=== PATIENT | male | born 1975 | race Two or more races ===

== ENCOUNTER 2019-02-03 12:48 | Inpatient (IN) | payer MEDICAID ==
[~2019-02-03] VITALS: Ht 149.9 cm; Wt 58.3 kg
[2019-02-03] MEDS ORDERED: BACL10TA PO (13:26)
[2019-02-03] MEDS ORDERED: FAMO20 GT (13:26)
[2019-02-03] MEDS ORDERED: ALBU8HFA IH (13:26)
[2019-02-03] MEDS ORDERED: DILT30 GT (13:26)
[2019-02-03] MEDS ORDERED: DOCU60SY GT (13:26)
[2019-02-03] MEDS ORDERED: LEVE250T55 GT (13:26)
[2019-02-03] MEDS ORDERED: PHEN-649 PO (13:26)
[2019-02-03] MEDS ORDERED: CALC-261 GT (13:26)
[2019-02-03] MEDS ORDERED: DIAZ5 GT (13:26)
[2019-02-03] MEDS ORDERED: LACO100 GT (13:26)
[2019-02-03] MEDS ORDERED: CARB100 GT (13:26)
[2019-02-03 16:54] LABS: BASOPHILS % (AUTO) 0.4 % (0.0-2.0); EOSINOPHILS % (AUTO) 0.2 % (1.0-6.0); HEMATOCRIT 35.2 % (41-53); HEMOGLOBIN 12.1 g/dL (13.5-17.5); LYMPHOCYTES # (AUTO) 0.8 K/uL (1.0-4.8); LYMPHOCYTES % (AUTO) 6.6 % (22.0-44.0); MEAN CORPUSCULAR HEMOGLOBIN 31.1 pg (26.0-34.0); MEAN CORPUSCULAR HGB CONC 34.3 G/dL (31.0-37.0); MEAN CORPUSCULAR VOLUME 91 fL (80-100); MONOCYTES # (AUTO) 0.6 K/uL (0.1-1.0); MONOCYTES % (AUTO) 4.8 % (2.0-9.0); PLATELET COUNT (AUTO) 233 K/uL (150-450); RED BLOOD CELL COUNT(AUTO) 3.89 MIL/uL (4.50-5.90); RED CELL DISTRIBUTION WIDTH 14.9 % (11.5-14.5)
[2019-02-03 17:18] LABS: B-TYPE NATRIURETIC PEPTIDE 50 pg/mL (0-100)
[2019-02-03 17:19] LABS: ANION GAP 9 mmol/L (8-16); CALCIUM, TOTAL 8.9 mg/dL (8.8-10.5); CARBON DIOXIDE 29 mmol/L (22-29); CHLORIDE 92 mmol/L (98-107); GLOMERULAR FILTR. RATE CALC > 60 mL/min (>60); GLUCOSE,RANDOM 86 mg/dL (70-110); POTASSIUM 4.4 mmol/L (3.5-5.1); SODIUM SERUM 130 mmol/L (136-145); UREA NITROGEN, BLOOD 15 mg/dL (7-18)
[2019-02-03 17:25] LABS: ALANINE AMINOTRANSFERASE 62 U/L (12-78); ALBUMIN 3.4 g/dL (3.4-5.0); ALKALINE PHOSPHATASE 128 U/L (46-116); ASPARTATE AMINOTRANSFERASE 37 U/L (15-37); BILIRUBIN,TOTAL 0.4 mg/dL (0.1-1.0); TOTAL PROTEIN, SERUM 8.2 g/dL (6.4-8.2)
[2019-02-03] MEDS ORDERED: AZITHROMYCIN 500 MG/NS 250 ML IV ONE (17:30)
[2019-02-03] MEDS ORDERED: SODIUM CHLORIDE 0.9% 1,000 ML IV ONE (17:30)
[2019-02-03] MEDS ORDERED: CefTRIAXone 1 GM/DEXTROSE 50 ML IV ONE (17:30)
[2019-02-03] MEDS ORDERED: ACETAMINOPHEN 325 MG TABLET PO PRN ×2 (18:45→21:15)
[2019-02-03] MEDS ORDERED: 0.9% SODIUM CHLORIDE 10 ML SYRINGE IVP PRN (18:45)
[2019-02-03] MEDS ORDERED: MAGNESIUM HYDROXIDE SUSPENSION 30 ML UDCUP PO PRN (21:15)
[2019-02-03] MEDS ORDERED: DEXTROSE 5%-0.45% SODIUM CHL 1,000 ML IV ONE (21:15)
[2019-02-03] MEDS ORDERED: LORazepam 2 MG/ML VIAL IVP PRN (21:15)
[2019-02-03] MEDS ORDERED: ALBUTEROL SULFATE 2.5 MG/0.5 ML NEB SOLUTION NEB PRN (21:15)
[2019-02-03 21:38] VITALS: BP 143/93
[2019-02-03] MEDS ORDERED: VANCOMYCIN HCL 1.5 GM in DEXTROSE 5%-WATER 250 ML IV ONE (22:00)
[2019-02-03] MEDS: PIPERACILLIN/TAZO 3.375 GM/D5W 50 ML IV SCH (23:50)
[2019-02-03 23:52] VITALS: BP 120/72
[2019-02-04 04:16] VITALS: BP 148/80
[2019-02-04 04:20] LABS: APPEARANCE,URINE CLEAR (CLEAR); BILIRUBIN,URINE NEGATIVE (NEGATIVE); GLUCOSE, URINE (UA) NEGATIVE (NEGATIVE); KETONES,URINE NEGATIVE (NEGATIVE); LEUKOCYTE ESTERASE ,URINE NEGATIVE (NEGATIVE); NITRATE,URINE NEGATIVE (NEGATIVE); OCCULT BLOOD,URINE NEGATIVE (NEGATIVE); PH,URINE 7.5 (5.0-8.0); PROTEIN,URINE NEGATIVE (NEGATIVE); UROBILINOGEN,URINE 0.2 mg/dL (<=1.0)
[2019-02-04] MEDS ORDERED: PNEUMOCOCCAL VACCINE POLYVALENT 0.5 ML VIAL [PPSV23] IM ONE (06:00)
[2019-02-04] MEDS: PIPERACILLIN/TAZO 3.375 GM/D5W 50 ML IV SCH ×4 (06:38→23:40)
[2019-02-04 06:43] LABS: ANION GAP 12 mmol/L (8-16); CALCIUM, TOTAL 9.5 mg/dL (8.8-10.5); CARBON DIOXIDE 23 mmol/L (22-29); CHLORIDE 102 mmol/L (98-107); CREATININE 0.47 mg/dL (0.60-1.30); GLOMERULAR FILTR. RATE CALC > 60 mL/min (>60); GLUCOSE,RANDOM 132 mg/dL (70-110); POTASSIUM 5.5 mmol/L (3.5-5.1); SODIUM SERUM 137 mmol/L (136-145); UREA NITROGEN, BLOOD 10 mg/dL (7-18)
[2019-02-04 06:52] LABS: BASOPHILS % (AUTO) 0.7 % (0.0-2.0); EOSINOPHILS % (AUTO) 0.6 % (1.0-6.0); HEMATOCRIT 34.2 % (41-53); HEMOGLOBIN 11.6 g/dL (13.5-17.5); LYMPHOCYTES # (AUTO) 1.2 K/uL (1.0-4.8); LYMPHOCYTES % (AUTO) 13.5 % (22.0-44.0); MEAN CORPUSCULAR HGB CONC 33.8 G/dL (31.0-37.0); MEAN CORPUSCULAR VOLUME 92 fL (80-100); MONOCYTES # (AUTO) 0.5 K/uL (0.1-1.0); MONOCYTES % (AUTO) 6.1 % (2.0-9.0); NEUTROPHILS % (AUTO) 79.1 % (40.0-70.0); PLATELET COUNT (AUTO) 225 K/uL (150-450); RED BLOOD CELL COUNT(AUTO) 3.73 MIL/uL (4.50-5.90); RED CELL DISTRIBUTION WIDTH 15.2 % (11.5-14.5)
[2019-02-04 07:40] VITALS: BP 148/72
[2019-02-04] MEDS ORDERED: VANCOMYCIN HCL 1.25 GM in DEXTROSE 5%-WATER 250 ML IV SCH (08:00)
[2019-02-04] MEDS: HEPARIN SODIUM,PORCINE 5,000 UNITS/ML VIAL SQ SCH ×2 (09:14→20:10)
[2019-02-04] MEDS: VANCOMYCIN HCL 1.25 GM in DEXTROSE 5%-WATER 250 ML IV SCH ×2 (09:14→20:09)
[2019-02-04] MEDS: LACOSAMIDE 100 MG TABLET PO SCH ×2 (09:15→20:10)
[2019-02-04] MEDS: FAMOTIDINE 20 MG TABLET PO SCH (09:15)
[2019-02-04] MEDS: CarBAMazepine 100 MG CHEWABLE TABLET PO SCH (09:15)
[2019-02-04] MEDS: DOCUSATE SODIUM 100 MG CAPSULE PO SCH ×2 (09:15→20:09)
[2019-02-04] MEDS: BACLOFEN 10 MG TABLET PO SCH ×3 (09:15→20:10)
[2019-02-04] MEDS ORDERED: SODIUM CHLORIDE 0.9% 1,000 ML IV ONE (09:15)
[2019-02-04] MEDS: LevETIRAcetam 250 MG TABLET PO SCH ×2 (09:16→20:10)
[2019-02-04 11:34] VITALS: BP 146/87
[2019-02-04 15:45] VITALS: BP 136/86
[2019-02-04 19:20] VITALS: BP 135/83
[2019-02-04 23:18] VITALS: BP 141/82
[2019-02-05 04:03] VITALS: BP 138/70
[2019-02-05] MEDS: PIPERACILLIN/TAZO 3.375 GM/D5W 50 ML IV SCH (05:23)
[2019-02-05 07:02] LABS: ANION GAP 9 mmol/L (8-16); CALCIUM, TOTAL 8.9 mg/dL (8.8-10.5); CARBON DIOXIDE 26 mmol/L (22-29); CHLORIDE 107 mmol/L (98-107); CREATININE 0.41 mg/dL (0.60-1.30); GLOMERULAR FILTR. RATE CALC > 60 mL/min (>60); GLUCOSE,RANDOM 117 mg/dL (70-110); POTASSIUM 3.7 mmol/L (3.5-5.1); SODIUM SERUM 142 mmol/L (136-145); UREA NITROGEN, BLOOD 7 mg/dL (7-18); VANCOMYCIN,RANDOM 22.2 mcg/mL (25.0-50.0)
[2019-02-05 07:35] VITALS: BP 138/69
[2019-02-05] MEDS: HEPARIN SODIUM,PORCINE 5,000 UNITS/ML VIAL SQ SCH ×2 (08:26→21:30)
[2019-02-05] MEDS: CarBAMazepine 100 MG CHEWABLE TABLET PO SCH (08:27)
[2019-02-05] MEDS: BACLOFEN 10 MG TABLET PO SCH ×3 (08:27→21:31)
[2019-02-05] MEDS: LACOSAMIDE 100 MG TABLET PO SCH ×2 (08:27→21:31)
[2019-02-05] MEDS: DOCUSATE SODIUM 100 MG CAPSULE PO SCH ×2 (08:27→21:31)
[2019-02-05] MEDS: LevETIRAcetam 250 MG TABLET PO SCH ×2 (08:27→21:31)
[2019-02-05] MEDS: FAMOTIDINE 20 MG TABLET PO SCH (08:27)
[2019-02-05] MEDS: VANCOMYCIN HCL 1.25 GM in DEXTROSE 5%-WATER 250 ML IV SCH (08:27)
[2019-02-05 11:22] VITALS: BP 127/81
[2019-02-05] MEDS: LEVOFLOXACIN 500 MG TABLET PO SCH (11:43)
[2019-02-05] MEDS: LACTOBAC ACID/BULG/BIFID/THERM TABLET PO SCH ×2 (11:43→21:42)
[2019-02-05 16:00] VITALS: BP 135/81
[2019-02-05 19:37] VITALS: BP 124/70
[2019-02-06 00:04] VITALS: BP 145/88
[2019-02-06 04:50] VITALS: BP 159/81
[2019-02-06 06:46] LABS: BASOPHILS % (AUTO) 0.7 % (0.0-2.0); EOSINOPHILS % (AUTO) 1.8 % (1.0-6.0); HEMATOCRIT 37.8 % (41-53); HEMOGLOBIN 12.7 g/dL (13.5-17.5); LYMPHOCYTES # (AUTO) 1.6 K/uL (1.0-4.8); LYMPHOCYTES % (AUTO) 17.7 % (22.0-44.0); MEAN CORPUSCULAR HEMOGLOBIN 30.6 pg (26.0-34.0); MEAN CORPUSCULAR HGB CONC 33.6 G/dL (31.0-37.0); MEAN CORPUSCULAR VOLUME 91 fL (80-100); MONOCYTES # (AUTO) 0.8 K/uL (0.1-1.0); NEUTROPHILS # (AUTO) 6.4 K/uL (1.8-7.7); NEUTROPHILS % (AUTO) 70.8 % (40.0-70.0); PLATELET COUNT (AUTO) 246 K/uL (150-450); RED BLOOD CELL COUNT(AUTO) 4.14 MIL/uL (4.50-5.90); RED CELL DISTRIBUTION WIDTH 15.3 % (11.5-14.5)
[2019-02-06 07:48] VITALS: BP 120/76
[2019-02-06] MEDS: LACTOBAC ACID/BULG/BIFID/THERM TABLET PO SCH (09:43)
[2019-02-06] MEDS: LACOSAMIDE 100 MG TABLET PO SCH (09:44)
[2019-02-06] MEDS: HEPARIN SODIUM,PORCINE 5,000 UNITS/ML VIAL SQ SCH (09:44)
[2019-02-06] MEDS: LevETIRAcetam 250 MG TABLET PO SCH (09:44)
[2019-02-06] MEDS: BACLOFEN 10 MG TABLET PO SCH (09:44)
[2019-02-06] MEDS: CarBAMazepine 100 MG CHEWABLE TABLET PO SCH (09:45)
[2019-02-06] MEDS: FAMOTIDINE 20 MG TABLET PO SCH (09:45)
[2019-02-06] MEDS: DOCUSATE SODIUM 100 MG CAPSULE PO SCH (09:45)
[2019-02-06] MEDS: LEVOFLOXACIN 500 MG TABLET PO SCH (09:45)
[2019-02-06 11:35] VITALS: BP 137/76
[2019-02-06 15:10] VITALS: BP 134/74
== END 2019-02-06 15:40 | disposition home or self-care (01) | DRG 720 ==
LOC: EMS 12:48 → 6N 20:33
PROVIDERS: ADMIT Internal Medicine; ATTEND Internal Medicine
DX: A41.9 Sepsis, unspecified organism (principal); J69.0 Pneumonitis due to inhalation of food and vomit; E43 Unspecified severe protein-calorie malnutrition; R13.10 Dysphagia, unspecified; E87.5 Hyperkalemia; Q02 Microcephaly; Z93.4 Other artificial openings of gastrointestinal tract status; G80.9 Cerebral palsy, unspecified; Z68.26 Body mass index [BMI] 26.0-26.9, adult; G40.909 Epilepsy, unspecified, not intractable, without status epilepticus; I25.10 Atherosclerotic heart disease of native coronary artery without angina pectoris; J45.909 Unspecified asthma, uncomplicated; R09.02 Hypoxemia
CPT/HCPCS: 71250; 83605; 87040; 87081; 93005; 96365; 96368; G0378; J0456; J0696; J1644; J2543; J3370; J7030; J7060